=== PATIENT | female | born 1975 | race American Indian/Alaskan Native ===

== ENCOUNTER 2017-09-14 18:14 | Emergency (ER) | payer MEDICAID ==
--- NOTE | 2017-09-14 18:46 | Emergency Department Report ---
ED Abdominal Pain HPI - General Chief Complaint: Abdominal Pain Stated Complaint: ABD PAIN Time Seen by Provider: 09/14/17 18:34 Source: patient Limitations: No Limitations - History of Present Illness Initial Comments: Patient says she has been having chronic abdominal pain was gone across about 4 days ago. She also says she's been having nausea and vomiting. MD Complaint: abdominal pain -: Gradual, days(s) (4) Location: periumbilical Radiation: epigastric Migration to: no migration Severity: moderate Severity scale (0 -10): 6 Quality: cramping, aching Consistency: intermittent Improves With: nothing Worsens With: nothing Associated Symptoms: nausea, vomiting. denies: diarrhea - Related Data LMP (females 10-50): unknown Previous Rx's Medication Instructions Recorded Last Taken Type Ondansetron [Zofran Odt] 4 mg PO Q8HR PRN #15 tab.rapdis 09/14/17 Unknown Rx Allergies Allergy/AdvReac Type Severity Reaction Status Date / Time No Known Allergies Allergy Unverified 09/14/17 20:26 ED Review of Systems ROS: Stated complaint: ABD PAIN Other details as noted in HPI Comment: All other systems reviewed and negative Constitutional: denies: chills, fever Eyes: denies: vision change ENT: denies: ear pain Respiratory: denies: cough, shortness of breath Cardiovascular: denies: chest pain, palpitations Endocrine: no symptoms reported Gastrointestinal: abdominal pain, nausea, vomiting. denies: diarrhea Genitourinary: denies: urgency, dysuria, frequency Musculoskeletal: denies: back pain Skin: denies: rash, change in color Neurological: denies: headache, weakness, numbness, paresthesias Psychiatric: denies: anxiety, depression Hematological/Lymphatic: denies: easy bleeding, easy bruising ED Past Medical Hx - Medications Home Medications: Home Medications Medication Instructions Recorded Confirmed Last Taken Type Ondansetron [Zofran Odt] 4 mg PO Q8HR PRN #15 tab.rapdis 09/14/17 Unknown Rx ED Physical Exam - General Limitations: No Limitations General appearance: alert, in no apparent distress - Head Head exam: Present: atraumatic, normocephalic, normal inspection - Eye Eye exam: Present: normal appearance, PERRL, EOMI Pupils: Present: normal accommodation - ENT ENT exam: Present: normal exam, normal orophraynx, mucous membranes moist - Neck Neck exam: Present: normal inspection, full ROM. Absent: tenderness - Respiratory Respiratory exam: Present: normal lung sounds bilaterally. Absent: respiratory distress, wheezes, rhonchi - Cardiovascular Cardiovascular Exam: Present: regular rate - GI/Abdominal GI/Abdominal exam: Present: soft, tenderness (Periumbilical area.), normal bowel sounds. Absent: guarding, rebound - Extremities Exam Extremities exam: Present: normal inspection, full ROM, normal capillary refill - Back Exam Back exam: Present: normal inspection, full ROM. Absent: tenderness - Neurological Exam Neurological exam: Present: alert, oriented X3, CN II-XII intact - Psychiatric Psychiatric exam: Present: normal affect, normal mood - Skin Skin exam: Present: warm, dry, intact, normal color ED Course Vital Signs 09/14/17 09/14/17 09/14/17 18:46 19:30 19:46 Temperature 99 F Pulse Rate 110 H Respiratory 22 Rate Blood Pressure 192/139 195/132 197/132 O2 Sat by Pulse 100 98 Oximetry 09/14/17 09/14/17 09/14/17 19:54 20:00 20:16 Temperature Pulse Rate Respiratory 20 Rate Blood Pressure 204/139 204/139 O2 Sat by Pulse 98 97 99 Oximetry 09/14/17 09/14/17 09/14/17 20:25 20:30 20:52 Temperature Pulse Rate 125 H Respiratory 20 Rate Blood Pressure 204/139 211/148 211/148 O2 Sat by Pulse 97 99 Oximetry 09/14/17 09/14/17 20:55 21:00 Temperature Pulse Rate Respiratory 20 Rate Blood Pressure 197/131 O2 Sat by Pulse 98 Oximetry - Reevaluation(s) Reevaluation #1: 09/14/17 22:18 Patient is resting comfortably and have bed without any sign of pain. She has not vomited since she's been in the emergency room today. Abdomen is soft and nontender to palpation. I'll go ahead and discharge her home to follow-up with her primary doctor. ED Medical Decision Making - Lab Data Result diagrams: 09/14/17 19:00 09/14/17 19:00 - Radiology Data Radiology results: report reviewed, image reviewed - Medical Decision Making Abdominal pain. Nausea and vomiting. Critical care attestation.: If time is entered above; I have spent that time in minutes in the direct care of this critically ill patient, excluding procedure time. ED Disposition Clinical Impression: Abdominal pain Qualifiers: Abdominal location: periumbilical Qualified Code(s): R10.33 - Periumbilical pain Nausea and vomiting Qualifiers: Vomiting type: unspecified Vomiting Intractability: unspecified Qualified Code( s): R11.2 - Nausea with vomiting, unspecified Disposition: TO HOME OR SELFCARE Is pt being admited?: No Does the pt Need Aspirin: No Condition: Stable Instructions: Abdominal Pain (ED) Additional Instructions: Please follow up with your primary doctor on Friday. Return to the emergency room if her condition worsens. Prescriptions: Ondansetron [Zofran Odt] 4 mg PO Q8HR PRN #15 tab.rapdis PRN Reason: Nausea And Vomiting Referrals: PRIMARY CARE, [Primary Care Provider] - 3-5 Days EBEN SETH MD [Staff Physician] - 3-5 Days Time of Disposition: 22:16
[2017-09-14 19:11] LABS: Basophils # (Auto) 0.1 K/mm3 (0.0-0.1); Basophils % (Auto) 1.2 % (0.0-1.8); Eosinophils % (Auto) 0.5 % (0.0-4.3); Hematocrit 39.8 % (30.3-42.9); Hemoglobin 12.5 gm/dl (10.1-14.3); Lymphocytes # (Auto) 3.1 K/mm3 (1.2-5.4); Lymphocytes % (Auto) 39.5 % (13.4-35.0); Mean Corpuscular HGB Conc 31 % (30-34); Mean Corpuscular Hemoglobin 26 pg (28-32); Mean Corpuscular Volume 83 fl (79-97); Monocytes # (Auto) 0.9 K/mm3 (0.0-0.8); Monocytes % (Auto) 11.5 % (0.0-7.3); Platelet Count 293 K/mm3 (140-440); Red Blood Count 4.79 M/mm3 (3.65-5.03); Red Cell Distribution Width 16.3 % (13.2-15.2)
[2017-09-14 19:24] LABS: Albumin 3.2 g/dL (3.9-5); Calcium 9.6 mg/dL (8.4-10.2)
[2017-09-14 19:59] LABS: Bilirubin,Urine NEG (Negative); Blood,Urine NEG (Negative); Color,Urine Amber (Yellow); Hyaline Casts,Urine 6 /LPF; Mucus,Urine 2+ /HPF
[2017-09-14 20:02] LABS: Protein,Urine >500 mg/dL (Negative)
[2017-09-14 20:05] LABS: Amphetamine Screen,Urine PRESUMPTIVE NEGATIVE; Benzodiazepines Screen,Urine PRESUMPTIVE NEGATIVE; Cannabinoid Screen,Urine PRESUMPTIVE NEGATIVE; Cocaine Screen,Urine PRESUMPTIVE NEGATIVE; Methadone Screen,Urine PRESUMPTIVE NEGATIVE; Opiate Screen,Urine PRESUMPTIVE NEGATIVE
[2017-09-14 20:07] LABS: HCG Qualitative,Urine Negative (Negative)
[2017-09-14] MEDS ORDERED: ZOFRAN ONE (20:16)
[2017-09-14] MEDS ORDERED: MORPHINE ONE (20:16)
[2017-09-14] MEDS ORDERED: CATAPRES PO ONE (20:17)
[2017-09-14] MEDS ORDERED: ZOFRAN IV ONE (20:17)
[2017-09-14] MEDS ORDERED: MORPHINE IV ONE (20:17)
[2017-09-14] MEDS ORDERED: CATAPRES ONE (20:17)
--- NOTE | 2017-09-14 21:44 | Cat Scan Report ---
FINAL REPORT PROCEDURE: CT ABDOMEN PELVIS WO CON TECHNIQUE: Computerized axial tomography of the abdomen and pelvis was performed without intravenous contrast. This study is performed without intravascular contrast material and its sensitivity for abdominal and pelvic pathology, including neoplasms, inflammation, abscess, free fluid, thrombosis, arterial dissection and infarction, is reduced compared with a contrast enhanced study. HISTORY: abdominal pain COMPARISON: No prior studies are available for comparison. FINDINGS: Liver, spleen, pancreas and bilateral adrenal glands are within normal limits. 2 millimeter nonobstructive calculi are noted in bilateral kidneys. 1.9 centimeter cyst is noted in the right kidney. There is no obstructive uropathy. Urinary bladder is unremarkable. Aorta is of normal caliber. There is no free fluid or free air. Status post cholecystectomy. Small bowel loops are within normal limits. Moderate degree residual stool is noted. Appendix is normal. Mild degree degenerative changes are noted involving the lumbar spine. Nodular densities are noted in the subcutaneous plane of lower anterior abdominal wall measuring up to 1.7 x 1.2 centimeters. IMPRESSION: 2 millimeter nonobstructive calculi bilateral kidneys. No obstructive uropathy. 1.9 centimeters cyst in the right kidney. It cannot be further evaluated on this noncontrast study. Lower anterior abdominal wall nodular densities can be further evaluated using ultrasound. Correlate clinically to rule out neoplastic nodules..
--- NOTE | 2017-09-14 21:47 | XRay Report ---
FINAL REPORT PROCEDURE: XR CHEST 1V AP TECHNIQUE: Chest radiograph anteroposterior view. CPT 87269 HISTORY: abdominal pain COMPARISON: No prior studies are available for comparison. FINDINGS: Heart: Normal. Mediastinum/Vessels: Normal. Lungs/Pleural space: Normal. Bony thorax: No acute osseous abnormality. Life support devices: None. IMPRESSION: No acute cardiopulmonary abnormality.
[2017-09-14 22:39] VITALS: BP 110/73
== END 2017-09-14 22:30 | disposition home or self-care (01) ==
LOC: ED 18:14
DX: R10.33 Periumbilical pain (principal); R11.2 Nausea with vomiting, unspecified
CPT/HCPCS: 36415; 71045; 74176; 80053; 80307; 81001; 81025; 82550; 83690; 84484; 85025; 96374; 96375; 99285; G0480; J2270; J2405; 80320

== ENCOUNTER 2017-09-20 04:35 | Emergency (ER) | payer MEDICAID ==
[2017-09-20] MEDS ORDERED: MORPHINE ONE (05:02)
[2017-09-20] MEDS ORDERED: ZOFRAN ONE (05:02)
[2017-09-20] MEDS ORDERED: MORPHINE IV ONE (05:07)
[2017-09-20] MEDS ORDERED: ZOFRAN IV ONE (05:08)
[2017-09-20] MEDS ORDERED: fentaNYL DRIP Premix 0 MCG/0 ML BAG IV ONE (06:13)
[2017-09-20] MEDS ORDERED: SUBLIMAZE ONE (06:14)
[2017-09-20] MEDS ORDERED: NORMODYNE IV ONE ×2 (06:15→06:33)
[2017-09-20 06:16] LABS: Basophils # (Auto) 0.1 K/mm3 (0.0-0.1); Basophils % (Auto) 1.2 % (0.0-1.8); Eosinophils % (Auto) 0.1 % (0.0-4.3); Hematocrit 45.5 % (30.3-42.9); Hemoglobin 15.1 gm/dl (10.1-14.3); Lymphocytes # (Auto) 1.8 K/mm3 (1.2-5.4); Lymphocytes % (Auto) 22.1 % (13.4-35.0); Mean Corpuscular HGB Conc 33 % (30-34); Mean Corpuscular Hemoglobin 27 pg (28-32); Mean Corpuscular Volume 82 fl (79-97); Monocytes # (Auto) 0.6 K/mm3 (0.0-0.8); Monocytes % (Auto) 7.2 % (0.0-7.3); Platelet Count 359 K/mm3 (140-440); Red Blood Count 5.52 M/mm3 (3.65-5.03)
[2017-09-20] MEDS ORDERED: PROTONIX IV ONE (06:27)
[2017-09-20] MEDS ORDERED: NACL 0.9% 1000 ML 1,000 ML IV ONE (06:28)
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
[2017-09-20] MEDS ORDERED: SUBLIMAZE IV ONE (06:33)
[2017-09-20 06:42] LABS: Alanine Aminotransferase 32 units/L (7-56); BUN/Creatinine Ratio 10; Blood Urea Nitrogen 10 mg/dL (7-17); Hemolysis Index 18
[2017-09-20 07:08] LABS: Lipase 21 units/L (13-60)
[2017-09-20 08:28] LABS: Bilirubin,Urine NEG (Negative); Blood,Urine NEG (Negative); Color,Urine Yellow (Yellow); Mucus,Urine FEW /HPF; Urobilinogen,Urine < 2.0 mg/dL (<2.0)
[2017-09-20 08:30] LABS: HCG Qualitative,Urine Negative (Negative)
[2017-09-20 08:32] LABS: Protein,Urine >500 mg/dL (Negative)
--- NOTE | 2017-09-20 10:58 | Cat Scan Report ---
CT scan of the abdomen and pelvis with IV contrast: Compared to 09/14/17. History abdominal pain. Findings: Normal lung bases. No pleural or pericardial effusion. Normal liver spleen and pancreas. Patient status post cholecystectomy. Common bile duct diameter at the pancreas 0.8 cm. No intrahepatic duct dilatation. Normal adrenals. Cyst in the right kidney measures 2.4 x 1.7 cm. No abnormal enhancement is noted. Nonobstructive tiny calculus it the left kidney. Normal urinary bladder. There is a cyst identified in the left adnexa measuring 2.6 x 2.1 cm. No intraperitoneal fluid or free air. No evidence of adenopathy. Normal aorta. Normal appendix. No bowel distention. Multiple subcutaneous anterior abdominal wall nodules without significant interval change. Impression: Cyst right kidney. Nonobstructing small calculus right kidney. Cyst left adnexa. Subcutaneous nodules in the anterior abdominal wall.
[2017-09-20] MEDS ORDERED: LIDOCAINE VISCOUS 2% PO ONE (12:15)
[2017-09-20] MEDS ORDERED: ALUM-MAG HYDROX-SIMETH 200-200-20MG/5ML PO ONE (12:15)
[2017-09-20 14:41] VITALS: BP 150/104
== END 2017-09-20 14:00 | disposition home or self-care (01) ==
LOC: ED 04:35
DX: K29.70 Gastritis, unspecified, without bleeding (principal); G43.909 Migraine, unspecified, not intractable, without status migrainosus; I10 Essential (primary) hypertension
CPT/HCPCS: 36415; 74177; 80053; 81001; 81025; 83690; 84484; 85025; 93005; 93010; 96361; 96374; 96375; 99285; C9113; J2270; J2405; J3010; J7030; Q9967

== ENCOUNTER 2017-09-29 10:02 | Emergency (ER) | payer MEDICAID ==
[2017-09-29] MEDS ORDERED: APRESOLINE ONE (11:33)
[2017-09-29] MEDS ORDERED: APRESOLINE PO ONE (11:34)
[2017-09-29] MEDS ORDERED: ZOFRAN IV ONE (12:08)
[2017-09-29] MEDS ORDERED: NACL 0.9% 500 ML 500 ML IV ONE (12:08)
[2017-09-29] MEDS ORDERED: APRESOLINE IV ONE (12:08)
[2017-09-29] MEDS ORDERED: XYLOCAINE CARDIAC IV ONE ×2 (12:08→12:45)
[2017-09-29] MEDS ORDERED: CARAFATE PO ONE (12:09)
[2017-09-29] MEDS ORDERED: TYLENOL PO ONE (12:09)
[2017-09-29] MEDS ORDERED: PEPCID IV ONE (12:09)
--- NOTE | 2017-09-29 12:10 | Emergency Department Report ---
ED General Adult HPI - General Chief complaint: Abdominal Pain Stated complaint: ABDOMINAL PAIN Time Seen by Provider: 09/29/17 12:01 Source: patient, RN notes reviewed, old records reviewed Mode of arrival: Wheelchair Limitations: No Limitations - History of Present Illness Initial comments: This is a 42-year-old female. The patient has a past medical history of abdominal pain, pancreatitis and elevated blood pressure. Patient also has a history of stroke, hypertension, possible renal disease, possible kidney disease , and has had multiple re-evaluations at this hospital in the department within the past month for abdominal pain. Patient was seen on September 20 for abdominal pain, had an appropriate and extensive workup done, including a negative CT scan of the abdomen pelvis with contrast. The patient presents today with her typical complaint of abdominal pain. Her pain is sharp. It is nonradiating, it increases with palpation, it decreases with rest. She denies headache, neck pain, chest pain, urinary symptoms, extremity weakness, numbness, ataxia. -: Gradual Location: abdomen Radiation: non-radiation Quality: burning, stabbing, aching Consistency: intermittent Improves with: medication, rest Worsens with: movement Associated Symptoms: malaise, nausea/vomiting, weakness. denies: confusion, chest pain, cough, diaphoresis, fever/chills, headaches, loss of appetite, rash , seizure, shortness of breath, syncope - Related Data Previous Rx's Medication Instructions Recorded Last Taken Type Amlodipine Besylate [Norvasc] 10 mg PO QDAY #30 tablet 09/29/17 Unknown Rx Aspirin [Adult Low Dose Aspirin EC] 81 mg PO DAILY #30 tablet. 09/29/17 Unknown Rx Carvedilol [Coreg] 6.25 mg PO BID #60 tablet 09/29/17 Unknown Rx Famotidine [Pepcid] 20 mg PO BID #60 tablet 09/29/17 Unknown Rx Ondansetron [Zofran Odt] 4 mg PO Q8HR PRN #20 tab.rapdis 09/29/17 Unknown Rx Sucralfate [Carafate] 10 ml PO ACHS #120 oral.liqd 09/29/17 Unknown Rx Allergies Allergy/AdvReac Type Severity Reaction Status Date / Time hydromorphone [From Dilaudid] Allergy Itching Verified 09/20/17 05:06 ED Review of Systems ROS: Stated complaint: ABDOMINAL PAIN Other details as noted in HPI Comment: All other systems reviewed and negative ED Past Medical Hx - Past Medical History Hx Hypertension: Yes Hx CVA: Yes (x2) Hx Congestive Heart Failure: Yes Hx Liver Disease: Yes Hx Renal Disease: Yes Hx Headaches / Migraines: Yes Additional medical history: Pt is supposed to be wearing a life pack vest. Pancreatitis - Surgical History Hx Cholecystectomy: Yes Additional Surgical History: Repair of brachial Plexes - Social History Smoking Status: Current Some Day Smoker Substance Use Type: None - Medications Home Medications: Home Medications Medication Instructions Recorded Confirmed Last Taken Type Amlodipine Besylate [Norvasc] 10 mg PO QDAY #30 tablet 09/29/17 Unknown Rx Aspirin [Adult Low Dose Aspirin EC] 81 mg PO DAILY #30 tablet.dr 09/29/17 Unknown Rx Carvedilol [Coreg] 6.25 mg PO BID #60 tablet 09/29/17 Unknown Rx Famotidine [Pepcid] 20 mg PO BID #60 tablet 09/29/17 Unknown Rx Ondansetron [Zofran Odt] 4 mg PO Q8HR PRN #20 tab.rapdis 09/29/17 Unknown Rx Sucralfate [Carafate] 10 ml PO ACHS #120 oral.liqd 09/29/17 Unknown Rx ED Physical Exam - General Limitations: No Limitations General appearance: alert, in no apparent distress, other (during her examination, the patient is yawning while this provider interviews her.) - Head Head exam: Present: atraumatic, normocephalic - Eye Eye exam: Present: normal appearance, EOMI. Absent: nystagmus - ENT ENT exam: Present: normal exam, normal orophraynx, mucous membranes moist, normal external ear exam - Neck Neck exam: Present: normal inspection, full ROM - Respiratory Respiratory exam: Present: normal lung sounds bilaterally. Absent: respiratory distress - Cardiovascular Cardiovascular Exam: Present: regular rate, normal rhythm, normal heart sounds. Absent: bradycardia, tachycardia, irregular rhythm, systolic murmur, diastolic murmur, rubs, gallop - GI/Abdominal GI/Abdominal exam: Present: soft, normal bowel sounds. Absent: distended, tenderness, guarding, rebound, rigid, pulsatile mass - Extremities Exam Extremities exam: Present: normal inspection, full ROM, normal capillary refill , other (there is no palpable cord, there is a negative Homans sign). Absent: tenderness, pedal edema, joint swelling, calf tenderness - Back Exam Back exam: Present: normal inspection, full ROM. Absent: tenderness, CVA tenderness (R), paraspinal tenderness, vertebral tenderness - Neurological Exam Neurological exam: Present: alert, oriented X3, CN II-XII intact, normal gait, other (Extraocular movements intact. Tongue midline. No facial droop. Facial sensation intact to light touch in the V1, V2, V3 distribution bilaterally. 5 and 5 strength in 4 extremities.. Sensation is intact to light touch in 4 extremities.). Absent: motor sensory deficit - Psychiatric Psychiatric exam: Present: normal affect - Skin Skin exam: Present: warm, dry, intact, normal color. Absent: rash ED Course Vital Signs 09/29/17 09/29/17 09/29/17 11:21 13:31 14:13 Temperature 97.7 F Pulse Rate 103 H 97 H 97 H Respiratory 20 Rate Blood Pressure 218/152 228/141 243/121 Blood Pressure [Left] O2 Sat by Pulse 99 Oximetry 09/29/17 14:25 Temperature Pulse Rate 92 H Respiratory 18 Rate Blood Pressure Blood Pressure 196/130 [Left] O2 Sat by Pulse 99 Oximetry - Reevaluation(s) Reevaluation #1: 09/29/17 15:17 Differential diagnosis, including but not limited to: AAA, gastritis, hypertension, medication noncompliance, pancreatitis Assessment and plan: 42-year-old female with acute on chronic abdominal pain. Equal pulses in the upper, lower extremities, no pulsatile abdominal masses noted. Patient has had 2 negative CAT scans of her abdomen and pelvis within the past month. During her examination, the patient is yawning, and also simultaneously indicating that she is having a lot of pain. Her exam appeared to be unreliable initially, therefore, a repeat CT scan of abdomen and pelvis was obtained, which did not demonstrate any significant pathology. Her blood pressure improved. She is still somewhat hypertensive but she can be discharged with outpatient antihypertensive medications, for a gradual diminishment in her blood pressure. Patient was counseled on the importance of blood pressure medication compliance , will be discharged at this time, return precautions are reviewed. Reevaluation #2: 09/29/17 15:19 Abnormal vital signs have improved. Patient had an unremarkable urinalysis on her previous visit. She does not endorse additional urinary symptoms. ED Medical Decision Making - Lab Data Result diagrams: 09/29/17 11:39 09/29/17 11:39 Vital Signs 09/29/17 09/29/17 09/29/17 11:21 13:31 14:13 Temperature 97.7 F Pulse Rate 103 H 97 H 97 H Respiratory 20 Rate Blood Pressure 218/152 228/141 243/121 Blood Pressure [Left] O2 Sat by Pulse 99 Oximetry 09/29/17 14:25 Temperature Pulse Rate 92 H Respiratory 18 Rate Blood Pressure Blood Pressure 196/130 [Left] O2 Sat by Pulse 99 Oximetry Labs 09/29/17 09/29/17 09/29/17 11:39 11:39 11:39 WBC 7.0 RBC 5.23 H Hgb 14.1 Hct 43.9 H MCV 84 MCH 27 L MCHC 32 RDW 18.6 H Plt Count 365 Lymph % (Auto) 29.2 Robertson % (Auto) 8.2 H Eos % (Auto) 1.1 Baso % (Auto) 1.0 Lymph # 2.1 Robertson # 0.6 Eos # 0.1 Baso # 0.1 Seg Neutrophils % 60.5 Seg Neutrophils # 4.3 Sodium 145 Potassium 3.3 L Chloride 107.1 H Carbon Dioxide 19 L Anion Gap 22 BUN 10 Creatinine 1.5 H Estimated GFR 46 BUN/Creatinine Ratio 7 Glucose 96 Calcium 10.2 Magnesium Total Bilirubin 1.10 AST 23 ALT 20 Alkaline Phosphatase 92 Total Protein 8.4 H Albumin 4.2 Albumin/Globulin Ratio 1.0 Lipase 21 HCG, Qual Negative 09/29/17 11:39 WBC RBC Hgb Hct MCV MCH MCHC RDW Plt Count Lymph % (Auto) Robertson % (Auto) Eos % (Auto) Baso % (Auto) Lymph # Robertson # Eos # Baso # Seg Neutrophils % Seg Neutrophils # Sodium Potassium Chloride Carbon Dioxide Anion Gap BUN Creatinine Estimated GFR BUN/Creatinine Ratio Glucose Calcium Magnesium 1.80 Total Bilirubin AST ALT Alkaline Phosphatase Total Protein Albumin Albumin/Globulin Ratio Lipase HCG, Qual - EKG Data -: EKG Interpreted by Ks EKG shows normal: sinus rhythm - EKG Data When compared to previous EKG there are: no significant change 09/29/17 15:31 Sinus, 89 bpm, normal axis, normal intervals, atrial enlargement, high left ventricular voltage, not a STEMI, unchanged from prior EKG from [facility] 2. - Radiology Data Radiology results: report reviewed, image reviewed Print Report Referring Physician: JOHN SWIFT Patient Name: ROBERT SINGLETARY Date of : 1975 Sex: Female Report Date: 2017-09-29 Report Status: Finalized Findings [facility] [address] [id number] Cat Scan Report Signed Patient: ROBERT SINGLETARY MR#: [id number] : 1975 Acct:[id number] Age/Sex: 42 / F ADM Date: 09/29/17 Loc: ED Attending Dr: Ordering Physician: JOHN SWIFT MD Date of Service: 09/29/17 Procedure(s): CT abdomen pelvis wo con Accession Number(s): [id number] cc: JOHN SWIFT MD CT ABDOMEN PELVIS WITHOUT CONTRAST: HISTORY: abdominal pain. COMPARISON: 09/20/17. TECHNIQUE: Helical CT in 1.25mm intervals without IV contrast. Sagittal and coronal reconstructions. FINDINGS: Lung bases: Normal. Liver: Normal. Biliary system: Cholecystectomy. No biliary dilatation. Pancreas: Normal. Spleen: Normal. Kidneys/ureters/bladder: The kidneys are normal size and position. A 2 cm cyst in the mid right kidney is unchanged. A punctate calyceal stone is identified in the mid left kidney and inferior pole of the left kidney. No ureteral stones or hydronephrosis. Normal bladder. Adrenal glands: Normal. Aorta: Normal. Intestines: Within normal limits given no oral contrast was administered. Appendix: Normal. Pelvic viscera: 2.7 cm left ovarian cyst has resolved. A right ovarian cyst has increased from 1.6 cm to 2.4 cm. There are 2 metallic clips in the left adnexa of uncertain significance. Please correlate with the patient's surgical history. Ascites: None. Adenopathy: None. Musculoskeletal: Intact. Partial sacralization of L5 is noted. IMPRESSION: No acute inflammatory process is identified. 2 punctate left renal stones, nonobstructing. 2.4 cm right ovarian cyst. Transcribed By: TTR Dictated By: JEOVANY JOHNSON JR, MD Electronically Authenticated By: JEOVANY JOHNSON JR, MD Signed Date/Time: 09/29/17 1251 Critical care attestation.: If time is entered above; I have spent that time in minutes in the direct care of this critically ill patient, excluding procedure time. ED Disposition Clinical Impression: Elevated blood pressure reading, Abdominal pain Disposition: DC-01 TO HOME OR SELFCARE Is pt being admited?: No Does the pt Need Aspirin: No Condition: Stable Instructions: Abdominal Pain (ED) Additional Instructions: Take the pain medication, nausea medication as needed/directed. Take blood pressure medications as directed. Please follow-up with the primary care doctor within the next month. Elevated blood pressure. Long-term complications of hypertension and elevated blood pressure includes stroke, heart attack, disability, paralysis, loss of quality of life. Avoid consumption of heavy, spicy foods, Motrin, ibuprofen, Naprosyn, Aleve, alcohol. Dr. Barrett is a local primary care doctor. Follow-up with a ammonia box tender within the next [address] King is a local gastroenterology specialist. Return to the ER right away with you pain, worsening pain, migration of pain, fevers, chills, lethargy, irritability, projectile vomiting, change in mental status, confusion, inability to tolerate liquid feeds. Prescriptions: Amlodipine Besylate [Norvasc] 10 mg PO QDAY #30 tablet Aspirin [Adult Low Dose Aspirin EC] 81 mg PO DAILY #30 tablet. Carvedilol [Coreg] 6.25 mg PO BID #60 tablet Famotidine [Pepcid] 20 mg PO BID #60 tablet Ondansetron [Zofran Odt] 4 mg PO Q8HR PRN #20 tab.rapdis PRN Reason: Nausea Sucralfate [Carafate] 10 ml PO ACHS #120 oral.liqd Referrals: PRIMARY KWESI, [Primary Care Provider] - 3-5 Days TOM BARRETT MD [Staff Physician] - 3-5 Days LIZETTE KING MD [Staff Physician] - 3-5 Days
[2017-09-29 12:15] LABS: Basophils # (Auto) 0.1 K/mm3 (0.0-0.1); Eosinophils # (Auto) 0.1 K/mm3 (0.0-0.4); Eosinophils % (Auto) 1.1 % (0.0-4.3); Hematocrit 43.9 % (30.3-42.9); Hemoglobin 14.1 gm/dl (10.1-14.3); Lymphocytes # (Auto) 2.1 K/mm3 (1.2-5.4); Lymphocytes % (Auto) 29.2 % (13.4-35.0); Mean Corpuscular HGB Conc 32 % (30-34); Mean Corpuscular Hemoglobin 27 pg (28-32); Mean Corpuscular Volume 84 fl (79-97); Monocytes # (Auto) 0.6 K/mm3 (0.0-0.8); Monocytes % (Auto) 8.2 % (0.0-7.3); Platelet Count 365 K/mm3 (140-440); Red Blood Count 5.23 M/mm3 (3.65-5.03); Red Cell Distribution Width 18.6 % (13.2-15.2)
[2017-09-29 12:18] LABS: Albumin 4.2 g/dL (3.9-5); Calcium 10.2 mg/dL (8.4-10.2)
[2017-09-29] MEDS ORDERED: CATAPRES PO ONE (12:28)
[2017-09-29] MEDS ORDERED: BENTYL PO NR (12:30)
[2017-09-29] MEDS ORDERED: K-DUR PO ONE (12:30)
[2017-09-29] MEDS ORDERED: MAG-OX PO STA (12:31)
[2017-09-29] MEDS ORDERED: NACL 0.9% IV ONE (12:45)
--- NOTE | 2017-09-29 13:01 | Cat Scan Report ---
CT ABDOMEN PELVIS WITHOUT CONTRAST: HISTORY: abdominal pain. COMPARISON: 09/20/17. TECHNIQUE: Helical CT in 1.25mm intervals without IV contrast. Sagittal and coronal reconstructions. FINDINGS: Lung bases: Normal. Liver: Normal. Biliary system: Cholecystectomy. No biliary dilatation. Pancreas: Normal. Spleen: Normal. Kidneys/ureters/bladder: The kidneys are normal size and position. A 2 cm cyst in the mid right kidney is unchanged. A punctate calyceal stone is identified in the mid left kidney and inferior pole of the left kidney. No ureteral stones or hydronephrosis. Normal bladder. Adrenal glands: Normal. Aorta: Normal. Intestines: Within normal limits given no oral contrast was administered. Appendix: Normal. Pelvic viscera: 2.7 cm left ovarian cyst has resolved. A right ovarian cyst has increased from 1.6 cm to 2.4 cm. There are 2 metallic clips in the left adnexa of uncertain significance. Please correlate with the patient's surgical history. Ascites: None. Adenopathy: None. Musculoskeletal: Intact. Partial sacralization of L5 is noted. IMPRESSION: No acute inflammatory process is identified. 2 punctate left renal stones, nonobstructing. 2.4 cm right ovarian cyst.
[2017-09-29] MEDS ORDERED: NORMODYNE IV ONE (13:58)
[2017-09-29 14:26] VITALS: BP 196/130
== END 2017-09-29 15:30 | disposition home or self-care (01) ==
LOC: ED 10:02
DX: I10 Essential (primary) hypertension (principal); I50.9 Heart failure, unspecified; G43.909 Migraine, unspecified, not intractable, without status migrainosus; Z86.73 Personal history of transient ischemic attack (TIA), and cerebral infarction without residual deficits; Z72.0 Tobacco use; Z79.82 Long term (current) use of aspirin; Z88.8 Allergy status to other drugs, medicaments and biological substances
CPT/HCPCS: 36415; 74176; 80053; 83690; 83735; 84703; 85025; 96365; 96375; 99284; J2001; J2405